=== PATIENT | male | born 1980 | race Caucasian/White ===

== ENCOUNTER 2021-12-13 16:08 | Emergency (ER) | payer SELFPAY ==
[2021-12-13] MEDS ORDERED: Fluconazole 100 MG TAB PO SCH (17:00)
== END 2021-12-13 16:59 | disposition home or self-care (01) ==
LOC: CSHERS 16:08
DX: N48.1 Balanitis (principal); E11.9 Type 2 diabetes mellitus without complications; F17.210 Nicotine dependence, cigarettes, uncomplicated
CPT/HCPCS: 99283

== ENCOUNTER 2022-01-05 21:22 | Emergency (ER) | payer SELFPAY ==
[2022-01-05] MEDS ORDERED: Lidocaine 1% w/Epinephrine 1:100K 20 ML VIAL ONE (21:52)
[2022-01-05] MEDS ORDERED: Bacitracin 1 PK ONE (22:22)
== END 2022-01-05 23:02 | disposition home or self-care (01) ==
LOC: CSHERS 21:22
DX: L05.01 Pilonidal cyst with abscess (principal); I25.10 Atherosclerotic heart disease of native coronary artery without angina pectoris; I25.2 Old myocardial infarction; E66.9 Obesity, unspecified; E11.42 Type 2 diabetes mellitus with diabetic polyneuropathy; F17.210 Nicotine dependence, cigarettes, uncomplicated; G47.30 Sleep apnea, unspecified
CPT/HCPCS: 99282

== ENCOUNTER 2022-01-09 05:24 | Emergency (ER) | payer SELFPAY | END 2022-01-09 08:13 | disposition home or self-care (01) | LOC: CSHERS 05:24 | DX: I83.92 Asymptomatic varicose veins of left lower extremity (principal); I25.10 Atherosclerotic heart disease of native coronary artery without angina pectoris; I25.2 Old myocardial infarction; E11.9 Type 2 diabetes mellitus without complications; E66.9 Obesity, unspecified; F17.210 Nicotine dependence, cigarettes, uncomplicated ==

== ENCOUNTER 2022-01-28 20:43 | Emergency (ER) | payer SELFPAY ==
[2022-01-28] MEDS ORDERED: Acetaminophen 500 MG TAB ONE (22:30)
== END 2022-01-28 23:07 | disposition home or self-care (01) ==
LOC: CSHERS 20:43
DX: I83.812 Varicose veins of left lower extremity with pain (principal); I25.2 Old myocardial infarction; E11.40 Type 2 diabetes mellitus with diabetic neuropathy, unspecified; F17.210 Nicotine dependence, cigarettes, uncomplicated

== ENCOUNTER 2022-02-23 09:06 | Emergency (ER) | payer SELFPAY | END 2022-02-23 12:18 | disposition home or self-care (01) | LOC: CSHERS 09:06 | DX: L03.111 Cellulitis of right axilla (principal); L02.411 Cutaneous abscess of right axilla; I25.10 Atherosclerotic heart disease of native coronary artery without angina pectoris; I25.2 Old myocardial infarction; E11.42 Type 2 diabetes mellitus with diabetic polyneuropathy | CPT/HCPCS: 99283 ==